=== PATIENT | female | born 1970 | race Caucasian/White ===

== ENCOUNTER 2016-12-06 09:43 | Emergency (ER) | payer OTHER, MEDICARE ==
[~2016-12-06] VITALS: Ht 167.6 cm; Wt 74.8 kg
[~2016-12-06 09:43] MED LIST: FLUOXETINE HYDR20 MG PO; MEDROL DOSEPAK1 PAC PO; OXCARBAZEPINE300 MG; OXYCODONE HCL15 MG PO; OXYCONTIN20 MG PO; OXYCONTIN30 MG PO; PREDNISONE 20MG20 MG PO; REGLAN10 MG PO; RIZATRIPTAN BEN10 M1 PO; TIZANIDINE4 MG PO; VENLAFAXINE H37.5 M1 PO; VENLAFAXINE HYD75 M1 PO; VYVANSE30 MG PO; VYVANSE50 MG PO; ZOFRAN4 M1 PO
[2016-12-06 09:51] VITALS: BP 142/84
--- NOTE | 2016-12-06 10:28 | ED HEADACHE COMPLAINT ---
History of Present Illness General Chief Complaint: General Adult Stated Complaint: HEAD,FACE,NECK PAIN Source: patient, family, old records Exam Limitations: no limitations Vital Signs & Intake/Output Vital Signs & Intake/Output Vital Signs Date Time Temp Pulse Resp B/P B/P Pulse O2 O2 Flow FiO2 Mean Ox Delivery Rate 12/06 0951 98.1 71 18 142/84 100 Room Air Allergies Coded Allergies: NO KNOWN ALLERGIES (12/09/10) Reconcile Medications FLUOXETINE HCL (Fluoxetine Hydrochloride) 20 MG CAP 2 CAP PO DAILY MENTAL HEALTH (Reported) Lisdexamfetamine Dimesylate (Vyvanse) 50 MG CAP 1 CAP PO DAILY ADHD (Reported ) Methylprednisolone. (Medrol) 1 PAC PAC 1 PAC PO TAPER facial pain, migraine? METOCLOPRAMIDE HCL (Reglan) 10 MG TAB 1 TAB PO Q8 PRN nausea/headache Ondansetron (Zofran Odt) 4 MG ODT 1 TAB PO Q6HR PRN NAUSEA Oxcarbazepine (Unknown Strength) TAB (Unknown Dose) UNKNOWN (Reported) Oxycodone Cr (OxyContin) 20 MG TAB 1 TAB PO TID PAIN (Reported) OXYCODONE HCL (Oxycodone HCl) 15 MG TAB 1 TAB PO 5 TIMES/DAY PAIN (Reported) Prednisone 20 MG TAB 2 TAB PO DAILY HEADACHE Rizatriptan Benzoate (Rizatriptan) 10 MG ODT 1 TAB PO AD PRN MIGRAINES ( Reported) TIZANIDINE HCL (Tizanidine) 4 MG TAB 1 TAB PO TID PRN MUSCLE SPASMS (Reported ) VENLAFAXINE HCL (Venlafaxine HCl ER) 37.5 MG CER 2 CAP PO DAILY MENTAL HEALTH (Reported) Triage Note: PT TO ED FOR EXACERBATION OF "CHRONIC TRIGEMINAL NEUROLGIA PAIN" REPORTING SHE IS CURRENTLY IN PAIN MANAGEMENT FOR SAME "BUT MY PERCOCET ISNT WORKING" TAKES 10 MG OF PERCOCET "EVERY 4-6 HOURS". Triage Nurses Notes Reviewed? yes Onset: Abrupt Duration: day(s): (3), constant Timing: recent history Quality/Severity: moderate, severe, achy Severity Numbers: 9 Head Injury Location: l sided, nonradiating No Modifying Factors: none Associated Symptoms: denies : No Patient currently breastfeeds: No HPI: 46-year-old female with history of trigeminal neuralgia presents to ER for evaluation complaining of a 3 day history of an exacerbation of her trigeminal neuralgia pain. The patient states she's been taking Percocet without improvement. No recent fall or head trauma. She's had history of surgeries in the past most recently being 15 years ago. No fever no chills. She denies numbness or tingling to her arms or, nausea no vomiting. She is not seen by a neurologist. She is followed by Dr. ventura in pain management. Her last dose of pain medication was earlier this morning without improvement or no change in her mental status per family (SYED HAYWARD) Past History Travel History Traveled to [place] past 21 day No Medical History Any Pertinent Medical History? see below for history Neurological: TRIGEMINAL NEURALGIA BRAIN STEM SURGERIES EENT: NONE Cardiovascular: hypertension Respiratory: NONE Gastrointestinal: NONE Hepatic: NONE Renal: NONE Musculoskeletal: NONE Psychiatric: anxiety Endocrine: NONE Blood Disorders: NONE Cancer(s): NONE MANAGER CREDIT COLLECTIONS/Reproductive: NONE Surgical History Surgical History: Multiple surgeries to mastoid region for trigeminal neuralgia Psychosocial History Who do you live with Other (see notes) What is your primary language German Tobacco Use: Current Daily Use Daily Tobacco Use Amount/Type: => 5 Cigarettes daily ETOH Use: denies use Illicit Drug Use: denies illicit drug use Family History Hx Contributory? No (SYED HAYWARD) Review of Systems Review of Systems Constitutional: Reports: see HPI. All Other Systems: Reviewed and Negative Comments Review of systems: See HPI, All other systems negative. Constitutional, no chills no fever, no malaise HEENT: No visual changes no sore throat no congestion, Cardio: No chest pain Skin: no rashes, no change in skin Respiratory: No dyspnea no cough no sputum GI: No nausea no vomiting, no diarrhea, : No dysuria Muscle skeletal: No joint pain, no joint swelling, no back pain, no neck pain, Neurologic: No numbness no confusion, headache Psych: No stress Heme/endocrine: No bruising Immunology: No lymphadenopathy (SYED HAYWARD) Physical Exam Physical Exam General Appearance: well developed/nourished, no apparent distress, alert, cachetic Cranial Nerves: normal hearing, normal speech, PERRL Comments: Well-developed well-nourished person in no acute distress HEENT: Normal EENT exam; PERRL, EOMI, no nystagmus. HEAD is atraumatic. moist mucous membranes. Neck: Supple normal range of motion without pain or tenderness Back: Nontender, Full range of motion Cardiovascular: Regular rate and rhythms no murmurs rubs or gallops Respiratory: Chest nontender.There were no bony deformities, no asymmetry. No respiratory distress. Patient speaking in full complete sentences. Breath sounds clear to auscultation bilaterally: NO W/R/R Extremity: No edema, full range of motion of extremities, normal and equal pulses bilaterally, 5 out of 5 strength noted to bilateral upper and lower extremities Neuro: Alert oriented x3, motor sensory normal, cranial nerves II through XII grossly intact. There were no obvious focal neurologic abnormalities. Negative Brudzinski's negative Kernig's Skin: No appreciable rash on exposed skin, skin is warm and dry. Psych: Mood and affect is normal, memory and judgment is normal. Core Measures Severe Sepsis Present: No Septic Shock Present: No (SYED HAYWARD) Progress Differential Diagnosis: encephalitis, IC mass/tumor, intracranial Hem., meningitis, musculoskeletal pain, sinusitis, temporal arteritis, trigeminal neuralgia, MASTOIDITIS Plan of Care: Current Medications Sig/Cy Start time Last Medication Dose Stop Time Status Admin Hydromorphone HCl 1 MG ONCE ONE 12/06 1044 UNVr (Dilaudid) 12/06 1046 I discussed with the patient at length all of their results. I had an extensive conversation regarding need for close follow up with their primary care physician/neurology, pain management this week as well as return precautions. I answered all of their questions, they feel comfortable with the plan and follow- up care. (SYED HAYWARD) Departure Departure Time of Disposition: 1037 Disposition: HOME OR SELF CARE Condition: Stable Clinical Impression Primary Impression: Trigeminal neuralgia Referrals: TIMUR ORONA,SHABANA SORIANO MD,FLAKITO (PCP/Family) CELINE ORONA,SHANELL Cheney Additional Instructions: follow up with your pain management dr ventura as well as neurologist dr tejada this week. continue taking your medication as prescribed. return to the ER with any concerns Departure Forms: Customer Survey General Discharge Information (SYED HAYWARD) PA/DRYING TUNNEL OPERATOR Co-Sign Statement Statement: ED Attending supervision documentation- I saw and evaluated the patient. I have also reviewed all the pertinent lab results and diagnostic results. I agree with the findings and the plan of care as documented in the PA's/DRYING TUNNEL OPERATOR's documentation. x I have reviewed the ED Record and agree with the PA's/DRYING TUNNEL OPERATOR's documentation. [] Additions or exceptions (if any) to the PAs/DRYING TUNNEL OPERATOR's note and plan are summarized below: [] (LUCY ORONA,JERSON)
== END 2016-12-06 10:48 ==
LOC: ERH 09:43
DX: G50.0 Trigeminal neuralgia (principal)
CPT/HCPCS: 96372

== ENCOUNTER 2017-12-19 14:38 | Emergency (ER) | payer OTHER, MEDICARE ==
[~2017-12-19] VITALS: Ht 170.2 cm; Wt 74.8 kg
[~2017-12-19 14:38] MED LIST changes: +ZITHROMAX250 M2 PO
[2017-12-19 15:11] LABS: ABSOLUTE BASOPHIL COUNT 0.1 /CUMM (0.0-0.2); ABSOLUTE EOSINOPHIL COUNT 0.3 /CUMM (0.0-0.7); ABSOLUTE GRANULOCYTE CT 2.8 /CUMM (1.4-6.5); ABSOLUTE LYMPH COUNT 2.5 /CUMM (1.2-3.4); ABSOLUTE MONOCYTE COUNT 0.5 /CUMM (0.10-0.60); BASOPHIL % 0.9 % (0.0-2.0); EOSINOPHIL % 4.4 % (0-5); HEMATOCRIT 34.5 % (37-47); MEAN CORPUSCULAR HGB 33.7 PG (27.0-31.0); MEAN CORPUSCULAR HGB CONC 33.7 G/DL (33.0-37.0); MEAN CORPUSCULAR VOLUME 99.8 FL (81.0-99.0); MEAN PLATELET VOLUME 6.3 FL (7.4-10.4); PLATELET COUNT 307 /CUMM (130-400); RBC DISTRIBUTION WIDTH 14.1 % (11.5-14.5); RED BLOOD CELL CT 3.46 /CUMM (4.20-5.40); WHITE BLOOD CELL COUNT 6.2 /CUMM (4.8-10.8)
--- NOTE | 2017-12-19 15:27 | RADIOLOGY REPORT ---
EXAMINATION: XR CHEST CLINICAL INFORMATION: Chest pain. COMPARISON: Chest x-ray 05/31/2017. TECHNIQUE: 2 views of the chest were obtained. FINDINGS: No acute abnormality. No pulmonary vascular congestion. No infiltrate or pleural effusion. There is no pneumothorax. The cardiac and mediastinal contours are normal. The heart size is normal. There is a mild dextroscoliosis of the thoracolumbar junction. IMPRESSION: No acute abnormality.
[2017-12-19 16:31] VITALS: BP 128/57
--- NOTE | 2017-12-19 16:59 | ED GENERAL ADULT ---
History of Present Illness General Chief Complaint: Chest Pain Stated Complaint: PT IS HAVING CP AND SOB AND BP 180/108 Source: patient Exam Limitations: no limitations Vital Signs & Intake/Output Vital Signs & Intake/Output Vital Signs Date Time Temp Pulse Resp B/P B/P Pulse O2 O2 Flow FiO2 Mean Ox Delivery Rate 12/19 1631 98.6 61 18 128/57 97 Room Air 12/19 1456 95.8 65 15 124/73 98 Room Air Room Air Allergies Coded Allergies: No Known Allergies (12/19/17) Reconcile Medications Azithromycin (Zithromax) 250 MG TABLET 1 DP PO AD bronchitis 2 the first day followed by 1 for days 2-5 FLUOXETINE HCL (Fluoxetine Hydrochloride) 20 MG CAP 2 CAP PO DAILY MENTAL HEALTH (Reported) Lisdexamfetamine Dimesylate (Vyvanse) 50 MG CAP 1 CAP PO DAILY ADHD (Reported ) Methylprednisolone. (Medrol) 1 PAC PAC 1 PAC PO TAPER facial pain, migraine? METOCLOPRAMIDE HCL (Reglan) 10 MG TAB 1 TAB PO Q8 PRN nausea/headache Ondansetron (Zofran Odt) 4 MG ODT 1 TAB PO Q6HR PRN NAUSEA Oxcarbazepine (Unknown Strength) TAB (Unknown Dose) UNKNOWN (Reported) Oxycodone Cr (OxyContin) 20 MG TAB 1 TAB PO TID PAIN (Reported) OXYCODONE HCL (Oxycodone HCl) 15 MG TAB 1 TAB PO 5 TIMES/DAY PAIN (Reported) Prednisone 20 MG TAB 2 TAB PO DAILY HEADACHE Rizatriptan Benzoate (Rizatriptan) 10 MG ODT 1 TAB PO AD PRN MIGRAINES ( Reported) TIZANIDINE HCL (Tizanidine) 4 MG TAB 1 TAB PO TID PRN MUSCLE SPASMS (Reported ) VENLAFAXINE HCL (Venlafaxine HCl ER) 37.5 MG CER 2 CAP PO DAILY MENTAL HEALTH (Reported) Triage Note: PT TO ED FOR C/C OF CHEST TIGHTNESS, "FEELS LIKE MY BRA IS REALLY TIGHT." WAS ADVISED TO COME TO ED BY HER FATHER'S VISITING NURSE FOR SUBJECTIVE BP OF 180/108. PT REPORTS THIS HAS HAPPENED BEFORE AND THEN WHEN SHE GOES TO THE DOCTOR HER BP IS FINE. BP WNL HERE. REPORTS NO ACTIVE CHEST PAIN AT THIS TIME. SOME SOB, NO ACUTE DISTRESS NOTED. Triage Nurses Notes Reviewed? yes HPI: Patient is a 47-year-old female with past medical history as outlined below, but no prior cardiac history, who presents today with chest discomfort. She reports that the discomfort was localized to her anterior chest, and that she has had dyspnea and palpitations for "years," but denies any new acute change in those symptoms. She presented to the emergency department "to be checked out." Upon my initial encounter the patient is exceedingly well-appearing, and in no acute distress. Past History Travel History Traveled to [place] past 21 day No Medical History Any Pertinent Medical History? 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 No Review of Systems Review of Systems Constitutional: Reports: see HPI. EENTM: Reports: no symptoms. Respiratory: Reports: short of breath. Cardiovascular: Reports: chest pain, palpitations. GI: Reports: no symptoms. Genitourinary: Reports: no symptoms. Musculoskeletal: Reports: no symptoms. Skin: Reports: no symptoms. Neurological/Psychological: Reports: no symptoms. Hematologic/Endocrine: Reports: no symptoms. Immunologic/Allergic: Reports: no symptoms. All Other Systems: Reviewed and Negative Physical Exam Physical Exam General Appearance: well developed/nourished, no apparent distress, alert, comfortable Comments: HEENT: Inspection of the head reveals a normocephalic cranium with no signs of trauma. Ophtho: Extraocular muscles are intact and pupils are equal and reactive to light bilaterally with no afferent pupillary defect. The sclera are noninjected , and there is no obvious discharge. Neck: The trachea is midline, there is no obvious asymmetry or mass over the thyroid, and there is no midline cervical spine tenderness Respiratory: The lungs are clear and equal to auscultation bilaterally without wheezes, rales, or rhonchi. The patient exhibits no signs of labored breathing. Cardiac: Regular rhythm and non-tachycardic without appreciable murmurs on auscultation. No obvious JVD. GI: Examination of the abdomen reveals no significant focal tenderness in any of the four quadrants. There is negative Paul's sign, negative McBurney's point tenderness, negative Carleton sign, negative Shrestha-Nieto sign, and no signs of peritonitis whatsoever on percussion or deep palpation. The skin is intact with no sign of trauma or infection. : Deferred Neuro: The patient is oriented to person, place, time, and situation, with no obvious focal motor deficits. There were no sensory deficits, and the patient exhibit purposeful movement of all 4 extremities. Cranial nerves II through XII are intact, and gait is normal. Behavioral: Calm and cooperative Dermatologic: Dermatologic examination reveals no diffuse rashes or exanthems, no petechiae, no ecchymoses, and no other signs of erythema or infection. Core Measures ACS in differential dx? Yes CVA/TIA Diagnosis: No Sepsis Present: No Sepsis Focused Exam Completed? No Progress Differential Diagnoses I considered the following diagnoses in my evaluation of the patient: Acute coronary syndrome, stable angina, unstable angina, pleurisy, pneumonia, multiple other possibilities Plan of Care: Orders Procedure Date/time Status URINE DRUG SCREEN FOR ER ONLY 12/19 1454 Complete TROPONIN LEVEL 12/19 1454 Complete HUMAN BETA HCG SCREEN 12/19 1454 Complete COMPREHENSIVE METABOLIC PANEL 12/19 1454 Complete CBC WITHOUT DIFFERENTIAL 12/19 1454 Complete EKG 12/19 1440 Active Laboratory Tests 12/19/17 1650: Urine Opiates Screen 266, Methadone Screen < 40, Barbiturate Screen < 60, Ur Phencyclidine Scrn < 6.00, Amphetamines Screen 503, U Benzodiazepines Scrn < 85, Urine Cocaine Screen < 50, Urine Cannabis Screen < 5.00 12/19/17 1502: Anion Gap 11, Estimated GFR > 60, BUN/Creatinine Ratio 16.3, Glucose 83, Calcium 9.1, Total Bilirubin 0.2, AST 21, ALT 25, Alkaline Phosphatase 77, Troponin I < 0.01, Total Protein 6.9, Albumin 4.0, Globulin 2.9, Albumin/Globulin Ratio 1.4, Total Beta HCG NEGATIVE, CBC w Diff NO MAN DIFF REQ, RBC 3.46 L, MCV 99.8 H, MCH 33.7 H, MCHC 33.7, RDW 14.1, MPV 6.3 L, Gran % 46.0, Lymphocytes % 40.4, Monocytes % 8.3, Eosinophils % 4.4, Basophils % 0.9, Absolute Granulocytes 2.8, Absolute Lymphocytes 2.5, Absolute Monocytes 0.5, Absolute Eosinophils 0.3, Absolute Basophils 0.1 CXR Impression: no acute abnormality, no infiltrates, normal size heart, normal mediastinum Initial ED EKG: ECG performed at 1446 hrs. and read at 1450 hrs. by me shows normal sinus rhythm with a rate of 66, normal axis, normal intervals, normal ST segments and T waves, no active ischemia, no STEMI. As compared to prior study from 03/06/2017, no interval ischemic changes are present. Comments: MDM: Patient presented today for atypical chest discomfort. She reports that she has had palpitations and dyspnea, but that these have been present for many years and or unchanged acutely. Her arrival ECG was nonischemic, and her troponin was negative. Chest x-ray clear. I discussed with the patient the possibility of hospitalization for cardiac observation and troponin trending, but she expressed interest in being discharged home and following up with her primary care physician and cardiology in the outpatient setting. I also offered a delta troponin at 3 hours to decrease her risk profile from 1-3% to below 1%, but she declined, stating that she felt comfortable with the workup as performed thus far. I referred her to cardiology, and her medical screening examination was otherwise negative. She was stable at time of discharge, with full understanding of my copious return precautions. Departure Departure Time of Disposition: 1656 Disposition: HOME OR SELF CARE Condition: Stable Clinical Impression Primary Impression: Chest pain Qualifiers: Chest pain type: other chest pain Qualified Code: R07.89 - Other chest pain Referrals: Loly Garcia MD (PCP/Family) Additional Instructions: Your workup in the ER was reassuring today. Please follow-up with your primary physician and with our cardiology team at the attached number for reassessment. Departure Forms: Customer Survey General Discharge Information Critical Care Note Critical Care Note Critical Care Time: non-applicable
== END 2017-12-19 17:16 ==
LOC: ERH 14:38
PROVIDERS: Physician Assistant
DX: R07.89 Other chest pain (principal)
CPT/HCPCS: 71046; 80307; 93005; 93010

== ENCOUNTER 2018-03-27 22:13 | Observation (INO) | payer OTHER, MEDICARE ==
[~2018-03-27] VITALS: Ht 170.2 cm; Wt 83.2 kg
[~2018-03-27 22:13] MED LIST changes: +FLUOXETINE HCL20 M2 PO; -FLUOXETINE HYDR20 MG PO; +MAXALT10 M1 PO; +OXCARBAZEPINE150 M1 PO; -OXCARBAZEPINE300 MG; +OXYCODONE HCL15 M1 PO; +OXYCONTIN20 M1 PO; -OXYCONTIN20 MG PO; -RIZATRIPTAN BEN10 M1 PO; +TIZANIDINE HCL4 M1 PO; -TIZANIDINE4 MG PO; -VENLAFAXINE H37.5 M1 PO; +VENLAFAXINE H37.5 M4 PO; +VYVANSE50 M1 PO; -VYVANSE50 MG PO
--- NOTE | 2018-03-27 23:00 | ED PSYCHIATRIC COMPLAINT ---
History of Present Illness General Chief Complaint: ETOH/Drug Related Complaint Stated Complaint: BIBA ?OD ON MUSCLE RELAXERS Source: family Exam Limitations: intoxication Vital Signs & Intake/Output Vital Signs & Intake/Output Vital Signs Date Time Temp Pulse Resp B/P B/P Pulse O2 O2 Flow FiO2 Mean Ox Delivery Rate 03/28 0018 54 14 83/51 99 Room Air 03/27 2333 53 16 84/48 94 Room Air Room Air 03/27 2319 50 20 85/52 100 Nasal 2.0L Cannula 03/27 2316 100 Room Air 03/27 2310 51 20 79/49 100 Nasal 2.0L Cannula 03/27 2248 97.2 53 18 83/48 100 Room Air ED Intake and Output 03/28 0000 03/27 1200 Intake Total 1000 Output Total Balance 1000 Intake, IV 1000 Allergies Coded Allergies: No Known Allergies (12/19/17) Reconcile Medications Azithromycin (Zithromax) 250 MG TABLET 1 DP PO AD bronchitis 2 the first day followed by 1 for days 2-5 FLUOXETINE HCL (Fluoxetine Hydrochloride) 20 MG CAP 2 CAP PO DAILY MENTAL HEALTH (Reported) Lisdexamfetamine Dimesylate (Vyvanse) 50 MG CAP 1 CAP PO DAILY ADHD (Reported ) Methylprednisolone. (Medrol) 1 PAC PAC 1 PAC PO TAPER facial pain, migraine? METOCLOPRAMIDE HCL (Reglan) 10 MG TAB 1 TAB PO Q8 PRN nausea/headache Ondansetron (Zofran Odt) 4 MG ODT 1 TAB PO Q6HR PRN NAUSEA Oxcarbazepine (Unknown Strength) TAB (Unknown Dose) UNKNOWN (Reported) Oxycodone Cr (OxyContin) 20 MG TAB 1 TAB PO TID PAIN (Reported) OXYCODONE HCL (Oxycodone HCl) 15 MG TAB 1 TAB PO 5 TIMES/DAY PAIN (Reported) Prednisone 20 MG TAB 2 TAB PO DAILY HEADACHE Rizatriptan Benzoate (Rizatriptan) 10 MG ODT 1 TAB PO AD PRN MIGRAINES ( Reported) TIZANIDINE HCL (Tizanidine) 4 MG TAB 1 TAB PO TID PRN MUSCLE SPASMS (Reported ) VENLAFAXINE HCL (Venlafaxine HCl ER) 37.5 MG CER 2 CAP PO DAILY MENTAL HEALTH (Reported) Triage Note: TRIAGE: BIBA FROM HOME FOR ?OD ON MUSCLE RELAXERS PER BOYFRIEND TO EMS. ON EMS ARRIVAL, PATIENT WAS COMBATIVE AND SCREAMED "I DIDN'T TAKE ANYTHING AND I HAD ONE DRINK!" PER EMS NOTED ONE EMPTY BEER BOTTLE. ON PROPOSAL WRITER ARRIVAL, PATIENT BECAME UNRESPONSIVE, PREHOSP IV EST #18 LEFT AC W/ APPROX 500ML NS INFUSED BOLUS, GIVEN TOTAL OF 2MG NARCAN AND 0.5MG ATROPINE IN FIELD W/ VERY SLIGHT IMPROVEMENT. PATIENT VERY SLIGHT RESPONSE TO STERNAL RUB. SNORING, AIRWAY PATENT, O2:100%RA. VERY PALE AND CLAMMY. PER EMS PATIENT SHEETS WERE BLOOD TINGED ON SCENE. Triage Nurses Notes Reviewed? yes Onset: Abrupt Duration: day(s): Timing: recent history Severity: moderate, severe HPI: 47-year-old female comes into the emergency room for further evaluation of after overdose. The boyfriend reports that he called her and she was not making sense on the phone. She was reportedly having a lot of pain and reports that she was given a take similar medication. He went to evaluate her and found her to be very combative. Ambulance was called and by the time the paramedics got there she was obtunded and not responding. She got 2 mg of Narcan in the field. She was still not responding. History is very limited. They are unsure of any other medication that she takes. She may have taken some muscle relaxants at home. (Steve Simpson) Past History Travel History Traveled to [place] past 21 day No Medical History Any Pertinent Medical History? see below for history Neurological: TRIGEMINAL NEURALGIA BRAIN STEM SURGERIES EENT: NONE Cardiovascular: hypertension, AMNIOTIC ARTERY AROUND TRIGEMINAL NERVE Respiratory: NONE Gastrointestinal: NONE Hepatic: NONE Renal: NONE Musculoskeletal: NONE Psychiatric: anxiety Endocrine: NONE Blood Disorders: NONE Cancer(s): NONE BURSAR/Reproductive: NONE Surgical History Surgical History: Multiple surgeries to mastoid region for trigeminal neuralgia Psychosocial History Who do you live with Other (see notes) What is your primary language Swedish Tobacco Use: UN ETOH Use: 6 Illicit Drug Use: UTD Family History Hx Contributory? No (Steve Simpson) Review of Systems Review of Systems Constitutional: Reports: no symptoms. EENTM: Reports: no symptoms. Respiratory: Reports: no symptoms. Cardiovascular: Reports: no symptoms. GI: Reports: no symptoms. Genitourinary: Reports: no symptoms. Musculoskeletal: Reports: no symptoms. Skin: Reports: no symptoms. Neurological/Psychological: Reports: see HPI. Hematologic/Endocrine: Reports: no symptoms. Immunologic/Allergic: Reports: no symptoms. All Other Systems: Reviewed and Negative (Steve Simpson) Physical Exam Physical Exam General Appearance: obtunded, does not respond to verbal or painful stimuli, does not respond to sternal rub Head: atraumatic Eyes: Bilateral: normal appearance, EOMI, other (pupils pinpoint). Ears, Nose, Throat: normal pharynx, normal ENT inspection, hearing grossly normal Neck: normal inspection Respiratory: normal breath sounds, no respiratory distress Cardiovascular: bradycardia Extremities: normal range of motion Neurological/Psychiatric: no response to pain Skin: intact, normal color, warm/dry SAD PERSONS Done? unobtained due to conditi (Steve Simpson) Progress Differential Diagnosis: dementia, drug intoxication, drug overdose, drug withdrawal, electrolyte abnormality, encephalitis Plan of Care: Orders Procedure Date/time Status Patient Data 03/[address] in observation 03/28 0006 Active Add-on Test (ER Only) 03/27 2318 Active Add-on Test (ER Only) 03/27 231 Active URINE 03/27 225 Complete ACETOMINOPHEN 03/27 225 Complete SALICYLATE 03/27 225 Complete URINE DRUG SCREEN FOR ER ONLY 03/27 224 Complete URINALYSIS 03/27 224 Complete ETHANOL 03/27 224 Complete COMPREHENSIVE METABOLIC PANEL 03/27 2247 Complete CBC WITHOUT DIFFERENTIAL 03/27 2247 Complete EKG 03/27 2222 Active Laboratory Tests 03/27/18 2255: Urine Opiates Screen 297, Methadone Screen 42, Barbiturate Screen 635 H, Ur Phencyclidine Scrn < 6.00, Amphetamines Screen 1152 H, U Benzodiazepines Scrn < 85, Urine Cocaine Screen < 50, Urine Cannabis Screen < 5.00, Urine Test NEGATIVE 03/27/182254: Anion Gap 7, Estimated GFR > 60, BUN/Creatinine Ratio 20.0, Glucose 130 H, Calcium 8.1 L, Total Bilirubin 0.2, AST 16, ALT 29, Alkaline Phosphatase 62, Total Protein 5.8 L, Albumin 3.4 L, Globulin 2.4, Albumin/Globulin Ratio 1.4, CBC w Diff NO MAN DIFF REQ, RBC 2.65 L, MCV 101.2 H, MCH 32.9 H, MCHC 32.5 L , RDW 14.8 H, MPV 7.1 L, Gran % 54.5, Lymphocytes % 35.8, Monocytes % 5.9, Eosinophils % 3.5, Basophils % 0.3, Absolute Granulocytes 4.4, Absolute Lymphocytes 2.9, Absolute Monocytes 0.5, Absolute Eosinophils 0.3, Absolute Basophils 0, Salicylates < 1.0, Acetaminophen < 10.0 L, Serum Alcohol 154.0, Urine Color YEL, Urine Clarity CLEAR, Urine pH 6.5, Ur Specific Hamel 1.015, Urine Protein NEG, Urine Ketones NEG, Urine Nitrite NEG, Urine Bilirubin NEG, Urine Urobilinogen 0.2, Ur Leukocyte Esterase NEG, Ur Microscopic EXAM NOT REQUIRED, Urine Hemoglobin NEG, Urine Glucose NEG Initial ED EKG: normal sinus rhythm, rate (51) (Steve Simpson) Departure Departure Disposition: STILL A PATIENT Condition: Stable Clinical Impression Primary Impression: Polysubstance overdose Referrals: Loly Garcia MD (PCP/Family) Departure Forms: Customer Survey General Discharge Information Observation Note Spoke With: Johny ORONA,Claudia Physician Advisor Notified: ZOILA WONG DO Place Patient In: Non-ED OBS Care Area Rationale for Observation: My rational for observation is as follows . IV fluids. Patient may require Narcan drip. dr redman spoke with hospitist. Repeat labs. Monitoring airway and respirations. Medically not safe for discharge. Patient required 2 mg of Narcan IV here in the emergency room. Patient responded to IV Narcan and is more alert but she will require close observation. (Steve Simpson) PA/HEATING EQUIPMENT INSTALLER Co-Sign Statement Statement: ED Attending supervision documentation- x I saw and evaluated the patient. I have also reviewed all the pertinent lab results and diagnostic results. I agree with the findings and the plan of care as documented in the PA's/HEATING EQUIPMENT INSTALLER's documentation. Obtunded with chronic pain on oxycodone, antidepressants [] I have reviewed the ED Record and agree with the PA's/HEATING EQUIPMENT INSTALLER's documentation. [] Additions or exceptions (if any) to the PAs/HEATING EQUIPMENT INSTALLER's note and plan are summarized below: [] (Chidi Redman MD) Critical Care Note Critical Care Note Critical Care Time: 30-74 min (45) (Ace CAMPOS,Steve)
[2018-03-27 23:15] LABS: ABSOLUTE BASOPHIL COUNT 0 /CUMM (0.0-0.2); ABSOLUTE EOSINOPHIL COUNT 0.3 /CUMM (0.0-0.7); ABSOLUTE GRANULOCYTE CT 4.4 /CUMM (1.4-6.5); ABSOLUTE LYMPH COUNT 2.9 /CUMM (1.2-3.4); ABSOLUTE MONOCYTE COUNT 0.5 /CUMM (0.10-0.60); BASOPHIL % 0.3 % (0.0-2.0); EOSINOPHIL % 3.5 % (0-5); GRANULOCYTE % 54.5 % (42.2-75.2); HEMATOCRIT 26.8 % (37-47); MEAN CORPUSCULAR HGB 32.9 PG (27.0-31.0); MEAN CORPUSCULAR HGB CONC 32.5 G/DL (33.0-37.0); MEAN CORPUSCULAR VOLUME 101.2 FL (81.0-99.0); MEAN PLATELET VOLUME 7.1 FL (7.4-10.4); PLATELET COUNT 267 /CUMM (130-400); RBC DISTRIBUTION WIDTH 14.8 % (11.5-14.5); RED BLOOD CELL CT 2.65 /CUMM (4.20-5.40); WHITE BLOOD CELL COUNT 8.1 /CUMM (4.8-10.8)
[2018-03-28] VITALS (9 sets, daily range): BP systolic 99–138; BP diastolic 54–84
--- NOTE | 2018-03-28 00:37 | History & Physical ---
Pito Michaels 03/28/18 0036: General Information and HPI MD Statement: I have seen and personally examined ZHENG PEOPLES and documented this H&P. The patient is a 47 year old F who presented with a patient stated chief complaint of [overdosing on muscle relaxant]. Source of Information: patient, family History of Present Illness: The patient is a 47-year-old female past medical history significant for trigeminal neuralgia, endometriosis, active smoker who was brought in by ambulance from home due to unresponsiveness after overdosing on muscle relaxants , probably tizanidine. The patient was accompanied by her fianc who is a clinical social media executive, and his name is Branden Lai, and also her father. The history was mostly taken from her fianc at first. According to him they were texting during the day, and the patient had severe pain, and then the texts got funny, and he found out that something is going wrong. He called 911, and went to her house. When he got there the ambulance was already there and she was unresponsive, according to him she was unresponsive probably for 30-45 minutes. Then she was taken to the hospital. According to the previous documentations, the patient was combative when the EMS arrived at home, they had found one empty bottle of beer, and the patient was unresponsive. They gave 0.5 mg of naloxone with various slight improvement. She had very small response to sternal rub, was pale, clammy, and snoring. Patient's sheets were blood-tinged at the scene. Later during the interview the patient became responsive, alert, and oriented. She mentioned that she took tizanidine because she had headache that she believed was from the trigeminal neuralgia. She denies any narcotic use other than Percocet 4 times a day which was prescribed for her endometriosis induced pain, and also headaches. She denies alcohol use, or any other recreational drug use. She does not state any suicidal ideation. She does not recall that how much and exactly what medications she took but she knows that she took too much. Allergy: No allergies to known medications or foods Past medical history: Endometriosis, trigeminal neuralgia, borderline hypertension Past surgical history: Knee surgery which was done years ago, D&C for scar tissue Social history: She has been smoking cigarettes 1 pack per day since she was 17, she uses occasional alcohol, but no recreational drugs Allergies/Medications Allergies: Coded Allergies: No Known Allergies (12/19/17) Compliance With Home Meds: UNKNOWN Past History Travel History Traveled to [place] past 21 day No Medical History Neurological: TRIGEMINAL NEURALGIA BRAIN STEM SURGERIES EENT: NONE Cardiovascular: hypertension, AMNIOTIC ARTERY AROUND TRIGEMINAL NERVE Respiratory: NONE Gastrointestinal: NONE Hepatic: NONE Renal: NONE Musculoskeletal: NONE Psychiatric: anxiety Endocrine: NONE Blood Disorders: NONE Cancer(s): NONE PLAYER SERVICES REPRESENTATIVE/Reproductive: NONE Surgical History Surgical History: Multiple surgeries to mastoid region for trigeminal neuralgia Past Family/Social History Psychosocial History ETOH Use: 6 Illicit Drug Use: UTD Review of Systems Review of Systems Constitutional: Reports: see HPI. Exam & Diagnostic Data Last 24 Hrs of Vital Signs/I&O Vital Signs Date Time Temp Pulse Resp B/P B/P Pulse O2 O2 Flow FiO2 Mean Ox Delivery Rate 03/28 0451 97.9 58 18 110/54 96 Room Air 03/28 0435 97.9 70 21 110/54 03/28 0357 58 16 96/57 98 Room Air 03/28 0353 99 Room Air Room Air 03/28 0305 59 16 94/56 99 Room Air Room Air 03/28 0245 66 16 98/56 99 Room Air Room Air 03/28 0227 67 16 97/54 99 Room Air Room Air 03/28 0124 58 14 95/52 100 Room Air Room Air 03/28 0105 58 14 86/47 97 Room Air Room Air 03/28 0018 54 14 83/51 99 Room Air 03/27 2333 53 16 84/48 94 Room Air Room Air 03/27 2319 50 20 85/52 100 Nasal 2.0L Cannula 03/27 2316 100 Room Air 03/27 2310 51 20 79/49 100 Nasal 2.0L Cannula 03/27 2248 97.2 53 18 83/48 100 Room Air Intake & Output 03/28 0800 03/28 0000 03/27 1600 Intake Total 4435 1000 Output Total 1200 Balance 3235 1000 Intake, IV 4435 1000 Intake, Oral 0 Number 0 Bowel Movements Output, Urine 1200 Patient 183 lb Weight Physical Exam General Appearance Alert, Oriented X3, Cooperative, No Acute Distress, Drowsy at begining of the interview, improved Skin No Rashes, No Breakdown Skin Temp/Moisture Exam: Warm/Dry Sepsis Skin Exam (color): Normal for Ethnicity HEENT Atraumatic Cardiovascular Regular Rate, Normal S1, Normal S2 Lungs Clear to Auscultation, Normal Air Movement Abdomen Normal Bowel Sounds, Soft, No Tenderness Extremities No Edema, Normal Pulses Vascular Normal Pulses, Pulses Symmetrical Sepsis Peripheral Pulse Location: Dorsalis Pedis Sepsis Peripheral Pulse Exam: Normal Sepsis Cap Refill Exam: <2 Sec Assessment/Plan Assessment: The patient is a 47-year-old female who was brought in by ambulance due to unresponsiveness after overdosing with some medications. The patient responded to naloxone when it was administered in ED. Unconsciousness probably due to overdosing of multiple substances including tizanidine: U tox was positive for opiates, amphetamines, and alcohol. The patient has prescribed amphetamines and oxcarbazepine. Since the patient had responded to naloxone, and the EMS team had found blood tinged sheets at her home, it is possible that there is a component of IV opiate overdose. Plan: The patient is admitted to ICU for further observation, regular neuro checks will be done, precautions for aspiration will be followed Hypotension and bradycardia: Upon admission the patient was bradycardic with heart rate of 50s, and low blood pressure systolic blood pressure in the 80s. Plan: The patient will be observing ICU, normal saline will be started for her at the rate of 100 cc/h Substance use disorder and alcohol: Although the patient denied alcohol use, urine level of alcohol was 154, so we will watch the patient for withdrawal Plan: Regular monitoring of CIWA score, no Ativan will be given to the patient for now, multivitamins, IV fluids-banana bag daily. Trigeminal neuralgia: The patient has a history of trigeminal neuralgia Plan: Home medications for trigeminal neuralgia will be held now due to the overdose, Tylenol as needed for pain, Macrocytic anemia: The patient had hemoglobin of 11.7 with a couple of months ago which was 8.7 on admission this time. She has MCV of 101.2. There is probably a component of folic acid deficiency, and possible GI blood loss. The patient states that last menstrual period was when she was 41 years old. Plan: Check vitamin B12, folic acid, iron panel, stool for occult blood As Ranked By This Provider Problem List: 1. Polysubstance overdose 2. Trigeminal neuralgia 3. Endometriosis Core Measures/Misc (04/01) Acute Coronary Syndrome ACS Diagnosis: No Congestive Heart Failure Congestive Heart Failure Diagnosis No Cerebrovascular Accident CVA/TIA Diagnosis: No VTE (View Protocol) VTE Risk Factors Age>40 No Mechanical VTE Prophylaxis d/t N/A MechProphylax Ordered No VTE Pharm Prophylaxis d/t NA PharmProphylax ordered Sepsis (View protocol) Sepsis Present: No If YES complete Sepsis Event Note If YES complete Sepsis Event Note Lester ORONA,Mariana 03/28/18 0051: General Information and HPI Allergies/Medications Home Med list Albuterol Sulfate (Proair Hfa) 90 MCG HFA.AER.AD 2 INH ALLERGIES (Reported) Fluoxetine HCl 20 MG CAPSULE 2 CAP PO DAILY MENTAL HEALTH (Reported) Lisdexamfetamine Dimesylate (Vyvanse) 50 MG CAPSULE 1 CAP PO QAM ADHD ( Reported) Oxcarbazepine (Unknown Strength) TABLET (Unknown Dose) PO BID UNKNOWN ( Reported) Oxycodone HCl (Oxycontin) 20 MG TAB.ER.12H 1 TAB PO TID PAIN (Reported) Oxycodone HCl 15 MG TABLET 1 TAB PO 5 TIMES A DAY PAIN (Reported) Rizatriptan Benzoate (Maxalt) 10 MG TABLET 1 TAB PO DAILY PRN HEADACHE ( Reported) Tizanidine HCl 4 MG TABLET 1 TAB PO TID PRN MUSCLE SPASMS (Reported) Venlafaxine HCl (Venlafaxine HCl ER) 37.5 MG CAP.ER.24H 2 CAP PO DAILY MENTAL HEALTH (Reported) Exam & Diagnostic Data Last 24 Hrs of Vital Signs/I&O Vital Signs Date Time Temp Pulse Resp B/P B/P Pulse O2 O2 Flow FiO2 Mean Ox Delivery Rate 03/28 0018 54 14 83/51 99 Room Air 03/27 2333 53 16 84/48 94 Room Air Room Air 03/27 2319 50 20 85/52 100 Nasal 2.0L Cannula 03/27 2316 100 Room Air 03/27 2310 51 20 79/49 100 Nasal 2.0L Cannula 03/278 97.2 53 18 83/48 100 Room Air Intake & Output 03/28 0800 03/28 0000 03/27 1600 Intake Total 1000 Output Total Balance 1000 Intake, IV 1000 Last 24 Hrs of Labs/Barney: Laboratory Tests 03/27/185: Urine Opiates Screen 297, Methadone Screen 42, Barbiturate Screen 635 H, Ur Phencyclidine Scrn < 6.00, Amphetamines Screen 1152 H, U Benzodiazepines Scrn < 85, Urine Cocaine Screen < 50, Urine Cannabis Screen < 5.00, Urine Test NEGATIVE 03/27/18 2255: Anion Gap 7, Estimated GFR > 60, BUN/Creatinine Ratio 20.0, Glucose 130 H, Calcium 8.1 L, Total Bilirubin 0.2, AST 16, ALT 29, Alkaline Phosphatase 62, Total Protein 5.8 L, Albumin 3.4 L, Globulin 2.4, Albumin/Globulin Ratio 1.4, CBC w Diff NO MAN DIFF REQ, RBC 2.65 L, MCV 101.2 H, MCH 32.9 H, MCHC 32.5 L , RDW 14.8 H, MPV 7.1 L, Gran % 54.5, Lymphocytes % 35.8, Monocytes % 5.9, Eosinophils % 3.5, Basophils % 0.3, Absolute Granulocytes 4.4, Absolute Lymphocytes 2.9, Absolute Monocytes 0.5, Absolute Eosinophils 0.3, Absolute Basophils 0, Salicylates < 1.0, Acetaminophen < 10.0 L, Serum Alcohol 154.0, Urine Color YEL, Urine Clarity CLEAR, Urine pH 6.5, Ur Specific [place] 1.015, Urine Protein NEG, Urine Ketones NEG, Urine Nitrite NEG, Urine Bilirubin NEG, Urine Urobilinogen 0.2, Ur Leukocyte Esterase NEG, Ur Microscopic EXAM NOT REQUIRED, Urine Hemoglobin NEG, Urine Glucose NEG Core Measures/Misc (04/01) Acute Coronary Syndrome ACS Diagnosis: No Congestive Heart Failure Congestive Heart Failure Diagnosis No Cerebrovascular Accident CVA/TIA Diagnosis: No VTE (View Protocol) VTE Risk Factors Age>40 No Mechanical VTE Prophylaxis d/t N/A MechProphylax Ordered No VTE Pharm Prophylaxis d/t NA PharmProphylax ordered Sepsis (View protocol) Sepsis Present: No If YES complete Sepsis Event Note If YES complete Sepsis Event Note Resident Review Statement Resident Statement: examined this patient, discussed with seo intern, agreed with seo intern, discussed with family Other Findings: Patient is a 47-year-old female with past medical history of trizonal neuralgia not following any neurologist on multiple medication, endometriosis, chronic smoker, BIBA from home because of overdosing of muscle relaxer. EMS were called by anuj. According to him patient was continuous in his contact since morning. She was talking over the phone and was seen that she has really bad pain/trigeminal neuralgia. She told in the evening that she is going to take muscle relaxant. After what she was not in contact and not responding so she called 911. According to the documentation patient was combative when EMS arrived at home, she was screaming that she did not take anything and had only 1 drink. Per EMS there was one empty beer bottle. Patient became unresponsive she was given 500 cc of normal saline followed by 2 mg of Narcan and 0.5 mg of troponin with very slight improvement. She had very small response to sternal rub, was pale, clammy, snoring. Patient's sheets were blood tinged at the scene. Vital signs at the time of admission -blood pressure 83/40 she was given IV normal saline. She needed an extra dose of 0.8 mg of Narcan. She did not have any good response. Another, 1.2 mg of Narcan was given followed by complete alertness. She was continued on IV fluid. Vital signs -temperature 97.2, pulse 53, respiratory rate 18, blood pressure 83/ 48, SPO2 100% on room air. Blood workup showed-hemoglobin 8.7, MCV 101.2, platelet count 267, sodium 135, potassium 3.9, chloride 100, carbon DEXA 28, anion gap 7, BUN 12, creatinine 0.6 , glucose 130, calcium 8.1, total bilirubin 0.2, AST 16, ALT 29, alkaline phosphatase 62, albumin 3.4, U tox-positive for barbiturates, amphetamine, serum alcohol-154, acetaminophen level less than 10, urine analysis-normal, urine test negative. Assessment and plan - Unconsciousness possibly secondary to overuse of opiates - * Admitted to ICU for further observation * Neuro check every shift * Aspiration precautions * We will confirm the medication from the pharmacy Hypotension and bradycardia - * We will observe in the ICU * IV fluid-normal saline 100 cc/h Substance use disorder -alcohol use disorder * Regular monitoring of CIWA score * No Ativan for now * IV fluids-banana bag daily * Multivitamin Trigeminal neuralgia - * We will hold the medication for now * Tylenol as needed for pain * Please decide about the pain medication in the morning as needed Microcytic anemia possibly due to folic acid deficiency * We will follow vit b12/ folic acid/ iron panel * advised for stool for occult blood CODE STATUS-full code Diet-regular diet DVT prophylaxis-ALPS/heparin Johny ORONA,Claudia 03/28/18 0449: Core Measures/Misc (04/01) Sepsis (View protocol) If YES complete Sepsis Event Note If YES complete Sepsis Event Note Attending MD Review Statement Attending Statement Attending MD Statement: examined this patient, discuss w/resident/PA/LIQUOR BLENDER, agreed w/resident/PA/LIQUOR BLENDER, reviewed EMR data (avail), discussed with nursing, amended to note Attending Assessment/Plan: Patient seen and examined. History and physical is as documented by the resident above. Patient currently alert and oriented x3. Conversant appropriately. She is actually very jovial. 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 She admits to chronic Headaches and pain from her trigeminal neuralgia which is usually controlled with oxycodone. She also complains of intermittent abdominal cramping which does not respond to oxycodone. She reports taking extra doses of tinazidine to help control her abdominal cramping. She then became unresponsive later on. She has been offered hysterectomy in the past by her supervisor photoengraving but declines this. She also declines pharmaceutical therapy from her supervisor photoengraving due to fears of the side effects. She denies any nausea or vomiting. At the time of evaluation she stated pain had resolved. On examination she had no neurologic deficit. Abdomen is soft and nontender with normal bowel sounds. she was admitted for close neuro watch with plans to avoid sedatives and opiate analgesics. However as the morning progressed patient became more alert and restless. She started to complain of diffuse abdominal pain and insisting on having opioid analgesics. Reports that the abdominal pain is severe. Physical examination is not significantly changed from prior. Review of records shows last CT scan of the abdomen was done in 2014. At that time there was mention of possible bowel obstruction. She however has no records of being hospitalized at that time. Problems: 1. Unresponsiveness; medication induced. Resolved 2. Abdominal pain; patient attributes this to endometriosis 3. Chronic pain syndrome. Patient has history of trigeminal neuralgia. 4. Hypotension; likely medication induced. Improving with IV hydration. 5. Worsening anemia Plan: -Observe overnight. - Avoid oversedation. Analgesics for control of abdominal pain. May administer oxycodone for pain control with close neuro watch. -Hold her tinazidine for now. -Recommend CT abdomen pelvis with oral contrast to further evaluate her complaints of severe abdominal pain. -Bowel regimen to prevent opioid-induced constipation. -PLAYER SERVICES REPRESENTATIVE consultation if no gastrointestinal etiology of pain is identified on imaging. -Continue IV hydration. Encourage oral intake. Monitor for improvement of blood pressure. -Hemoglobin level noted to be much lower than levels earlier on this year. Check stool guaiac. Trend hemoglobin level. Check iron profile.
[2018-03-28] MEDS ORDERED: PROAIR HFA8.5 GM INH (05:19)
--- NOTE | 2018-03-28 07:20 | Cons- CRCU ---
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 EMS were called by anuj. According to him patient was continuous in his contact since morning. She was talking over the phone and was seen that she has really bad pain/trigeminal neuralgia. She told in the evening that she is going to take muscle relaxant. After what she was not in contact and not responding so she called 911. According to the documentation patient was combative when EMS arrived at home, she was screaming that she did not take anything and had only 1 drink. Per EMS there was one empty beer bottle. Patient became unresponsive she was given 500 cc of normal saline followed by 2 mg of Narcan and 0.5 mg of troponin with very slight improvement. She had very small response to sternal rub, was pale, clammy, snoring. Patient's sheets were blood tinged at the scene. Vital signs at the time of admission -blood pressure 83/40 she was given IV normal saline. She needed an extra dose of 0.8 mg of Narcan. She did not have any good response. Another, 1.2 mg of Narcan was given followed by complete alertness. She was continued on IV fluid. Vital signs -temperature 97.2, pulse 53, respiratory rate 18, blood pressure 83/ 48, SPO2 100% on room air. Blood workup showed-hemoglobin 8.7, MCV 101.2, platelet count 267, sodium 135, potassium 3.9, chloride 100, carbon DEXA 28, anion gap 7, BUN 12, creatinine 0.6 , glucose 130, calcium 8.1, total bilirubin 0.2, AST 16, ALT 29, alkaline phosphatase 62, albumin 3.4, U tox-positive for barbiturates, amphetamine, serum alcohol-154, acetaminophen level less than 10, urine analysis-normal, urine test negative. ON my examination, patient was somnolent, eventually alert after sternal rub. She states that last night she had significant pain, and decided to take 3 of her tinazidine pills, also drank 3 beers while cooking dinner. States that she continued to have abdominal pain and decided to take 3 more tinazidine pills. States that she gets these pills from her pain management physician for trigeminal neuralgia. States that she has not used these in the past although eventually admits that she has taken these before but does not remember her normal reaction or dose that she takes. Has never mixed her muscle relaxants with alcohol before, and denies drinking (although stated she drank 3 beers last night while cooking during the interview) daily. Unsure of when she last took Fioricet when asked if she had taken any barbiturates given positive UDS. States that she is happy with her life and is getting soon, denies SI/HI. States that she continues to have mild crampy abdominal pain, is diagnosed with endometriosis but says she has not been sexually active in quite some time and is unsure why she has pains now. Allergies/Medications Allergies: Coded Allergies: No Known Allergies (12/19/17) Home Med List: Albuterol Sulfate (Proair Hfa) 90 MCG HFA.AER.AD 2 INH ALLERGIES (Reported) Fluoxetine HCl 20 MG CAPSULE 2 CAP PO DAILY MENTAL HEALTH (Reported) Lisdexamfetamine Dimesylate (Vyvanse) 50 MG CAPSULE 1 CAP PO QAM ADHD ( Reported) Oxcarbazepine (Unknown Strength) TABLET (Unknown Dose) PO BID UNKNOWN ( Reported) Oxycodone HCl 15 MG TABLET 1 TAB PO 5 TIMES A DAY PAIN (Reported) Oxycodone HCl (Oxycontin) 20 MG TAB.ER.12H 1 TAB PO TID PAIN (Reported) Rizatriptan Benzoate (Maxalt) 10 MG TABLET 1 TAB PO DAILY PRN HEADACHE ( Reported) Tizanidine HCl 4 MG TABLET 1 TAB PO TID PRN MUSCLE SPASMS (Reported) Venlafaxine HCl (Venlafaxine HCl ER) 37.5 MG CAP.ER.24H 2 CAP PO DAILY MENTAL HEALTH (Reported) Current Medications: Current Medications Sig/Cy Start time Last Medication Dose Route Stop Time Status Admin Acetaminophen 1,000 MG Q8P PRN 03/28 0515 AC 03/28 N/A 1 UNIT IV 0556 Cyanocobalamin/ 1 BAG DAILY 03/29 0900 AC Thiamine/Pyridoxine IV Dextrose/Water 1,000 ML Cyanocobalamin/ 1 BAG DAILY 03/28 0900 DC Thiamine/Pyridoxine IV Dextrose/Water 1,000 ML Cyanocobalamin/ 1 BAG DAILY 03/28 0200 DC 03/28 Thiamine/Pyridoxine IV 0255 Dextrose/Water 1,000 ML Docusate Sodium 100 MG BIDPRN PRN 03/29 0951 AC PO Docusate Sodium 100 MG DAILY 03/28 0951 DC PO Enoxaparin Sodium 40 MG DAILY 03/28 0900 AC SC Lorazepam 1 MG ONE ONE 03/28 0515 DC 03/28 IV 03/28 0516 0515 Lorazepam 0 .STK-MED ONE 03/28 0441 DC .ROUTE Lorazepam 0 Q1P PRN 03/28 0045 DC IV Naloxone HCl 2 MG ONCE ONE 03/27 2330 DC 03/27 IV 03/27 2331 2323 Naloxone HCl 0 .STK-MED ONE 03/27 2319 DC .ROUTE Naloxone HCl 0 .STK-MED ONE 03/27 2314 DC .ROUTE Nicotine 21 MG DAILY 03/28 0900 AC 03/28 TOP 0949 Oxycodone/ 1 TAB Q4P PRN 03/28 0515 DC Acetaminophen PO Senna 187 MG AT BEDTIME 03/28 2100 DC PO Senna 187 MG ONCE ONE 03/28 1015 DC PO 03/28 1016 Sodium Chloride 1,000 ML BOLUS ONE 03/28 0100 DC 03/28 IV 03/28 0159 0051 Sodium Chloride 1,000 ML BOLUS ONE 03/28 0100 DC 03/28 IV 03/28 0159 0051 Sodium Chloride 1,000 ML BOLUS ONE 03/28 0100 DC 03/28 IV 03/28 0159 0051 Sodium Chloride 1,000 ML BOLUS ONE 03/27 2330 DC 03/27 IV 03/28 0029 2323 Sodium Chloride 1,000 ML BOLUS ONE 03/27 2330 DC 03/27 IV 03/28 0029 2323 Thiamine HCl 0 .STK-MED ONE 03/28 0239 DC .ROUTE Thiamine HCl 100 MG ONCE ONE 03/28 0200 DC 03/28 Sodium Chloride 50 ML IV 03/28 0259 0243 Venlafaxine HCl 75 MG DAILY 03/28 0900 AC 03/28 PO 0949 Review of Systems Review of Systems Constitutional: Reports: see HPI. 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: endometriosis Surgical History Surgical History: Multiple surgeries to mastoid region for trigeminal neuralgia Psychosocial History Smoking Status: Current Everyday Smoker ETOH Use: 6 Illicit Drug Use: UTD Exam & Diagnostic Data Last 24 Hrs of Vital Signs/I&O Vital Signs Date Time Temp Pulse Resp B/P B/P Pulse O2 O2 Flow FiO2 Mean Ox Delivery Rate 03/28 08 97.1 78 18 110/60 03/28 0800 97 Nasal 1.0L Cannula 03/28 08 97.7 54 18 128/74 97 Nasal 1.0L Cannula 03/28 0600 61 19 99/55 03/28 0451 97.9 58 18 110/54 96 Room Air 03/28 0435 97.9 70 21 110/54 03/28 0357 58 16 96/57 98 Room Air 03/28 0353 99 Room Air Room Air 03/28 0305 59 16 94/56 99 Room Air Room Air 03/28 0245 66 16 98/56 99 Room Air Room Air 03/28 0227 67 16 97/54 99 Room Air Room Air 03/28 0124 58 14 95/52 100 Room Air Room Air 03/28 0105 58 14 86/47 97 Room Air Room Air 03/28 0018 54 14 83/51 99 Room Air 03/27 2333 53 16 84/48 94 Room Air Room Air 03/27 2319 50 20 85/52 100 Nasal 2.0L Cannula 03/27 2316 100 Room Air 03/27 2310 51 20 79/49 100 Nasal 2.0L Cannula 03/27 2248 97.2 53 18 83/48 100 Room Air Intake & Output 03/28 1600 03/28 0800 03/28 0000 Intake Total 4435 1000 Output Total 1200 Balance 3235 1000 Intake, IV 4435 1000 Intake, Oral 0 Number 0 Bowel Movements Output, Urine 1200 Patient 183 lb Weight Physical Exam General Appearance: well developed/nourished, no apparent distress, awake, anxious Head: atraumatic Ears, Nose, Throat: normal pharynx Neck: normal inspection Respiratory: normal breath sounds, lungs clear Cardiovascular: regular rate/rhythm, normal peripheral pulses Gastrointestinal: soft, non-tender Back: normal inspection Extremities: normal inspection, no edema Last 48 Hrs of Labs/Barney: Laboratory Tests 03/28/18 0540: Anion Gap 7, Estimated GFR > 60, Glucose 103 H, Calcium 7.4 L, Phosphorus 3.4, Magnesium 1.8, Total Bilirubin < 0.1 L, AST 48 H, ALT 48, Troponin I < 0.01, Albumin 2.9 L, CBC w Diff NO MAN DIFF REQ, RBC 2.45 L, MCV 100.8 H, MCH 33.1 H, MCHC 32.8 L, RDW 15.4 H, MPV 7.2 L, Gran % 57.4, Lymphocytes % 36.4, Monocytes % 4.6, Eosinophils % 1.0, Basophils % 0.6, Absolute Granulocytes 2.3, Absolute Lymphocytes 1.4, Absolute Monocytes 0.2, Absolute Eosinophils 0, Absolute Basophils 0 03/27/18 2255: Urine Opiates Screen 297, Methadone Screen 42, Barbiturate Screen 635 H, Ur Phencyclidine Scrn < 6.00, Amphetamines Screen 1152 H, U Benzodiazepines Scrn < 85, Urine Cocaine Screen < 50, Urine Cannabis Screen < 5.00, Urine Test NEGATIVE 03/27/18 2255: Anion Gap 7, Estimated GFR > 60, BUN/Creatinine Ratio 20.0, Glucose 130 H, Calcium 8.1 L, Iron 82, TIBC 296, Ferritin 39.5, Total Bilirubin 0.2, AST 16, ALT 29, Alkaline Phosphatase 62, Total Protein 5.8 L, Albumin 3.4 L, Globulin 2.4, Albumin/Globulin Ratio 1.4, Vitamin B12 401, Folate 18.8, CBC w Diff NO MAN DIFF REQ, RBC 2.65 L, MCV 101.2 H, MCH 32.9 H, MCHC 32.5 L, RDW 14.8 H, MPV 7.1 L, Gran % 54.5, Lymphocytes % 35.8, Monocytes % 5.9, Eosinophils % 3.5, Basophils % 0.3, Absolute Granulocytes 4.4, Absolute Lymphocytes 2.9, Absolute Monocytes 0.5, Absolute Eosinophils 0.3, Absolute Basophils 0, Salicylates < 1.0 , Acetaminophen < 10.0 L, Serum Alcohol 154.0, Urine Color YEL, Urine Clarity CLEAR, Urine pH 6.5, Ur Specific [place] 1.015, Urine Protein NEG, Urine Ketones NEG, Urine Nitrite NEG, Urine Bilirubin NEG, Urine Urobilinogen 0.2, Ur Leukocyte Esterase NEG, Ur Microscopic EXAM NOT REQUIRED, Urine Hemoglobin NEG, Urine Glucose NEG Assessment/Plan CRCU Impression/Plan: Teresa Gar is a 47F with PMH Trigeminal Neuralgia, Chronic Smoker, Endometriosis BIBA after taking 6 tinazadine pills and 3 beers, aggressive at scene and went unresponsive, given Narcan 0.8 MG followed by 1.2mg, was hypotensive and bradycardic on admission, given 1L NS bolus followed by 3L NS, and 1mg ativan in the morning given agitation. Her CT abdomen/pelvis scan was negative, TVUS showed no abnormalaties, and her mental status has been improving. Respiratory: stable -Good saturations on room air -Lungs clear on exam Infectious Disease: stable -Afebrile without leukocytosis -Todays CBC shows WBC at 4.0. Will f/u with CBC tomorrow AM Cardiovascular/Circulatory: -Hypotensive on admission, s/p 5L NS, no signs of overt fluid overload. Will monitor -Normotensive with NSR on monitor at this time Hematologic: Elevated MCV 101.2, Macrocytic Anemia -H/H 8.7/26.8 , B12 and Folate WNL -Previous H/H was 11.7/34.5 in December 2017 -Will repeat CBC tomorrow AM Metabolic:Stable -Utox shows elevated barbiturate level, positive amphetamine -Mild transaminitis likely 2/2 muscle relaxant usage and alcohol -Will trend with BEP tomorrow Alimentary: Stable -Tolerating Regular Diet -Bowel regimen prescribed, had large stool caliber on CT scan Neurologic: -Denies SI/HI -No focal neuro deficits -No tremor or asterixis noted -On CIWA scale -Psychiatry input appreciated Nephro: -BUN/Cr stable DVT PPX IV access - peripheral Full code Consult Acknowledgment - Thank you for your consult request.
[2018-03-28 07:53] LABS: ABSOLUTE BASOPHIL COUNT 0 /CUMM (0.0-0.2); ABSOLUTE EOSINOPHIL COUNT 0 /CUMM (0.0-0.7); ABSOLUTE GRANULOCYTE CT 2.3 /CUMM (1.4-6.5); ABSOLUTE LYMPH COUNT 1.4 /CUMM (1.2-3.4); ABSOLUTE MONOCYTE COUNT 0.2 /CUMM (0.10-0.60); BASOPHIL % 0.6 % (0.0-2.0); GRANULOCYTE % 57.4 % (42.2-75.2); HEMATOCRIT 24.7 % (37-47); MEAN CORPUSCULAR HGB 33.1 PG (27.0-31.0); MEAN CORPUSCULAR HGB CONC 32.8 G/DL (33.0-37.0); MEAN CORPUSCULAR VOLUME 100.8 FL (81.0-99.0); MEAN PLATELET VOLUME 7.2 FL (7.4-10.4); PLATELET COUNT 203 /CUMM (130-400); RBC DISTRIBUTION WIDTH 15.4 % (11.5-14.5); RED BLOOD CELL CT 2.45 /CUMM (4.20-5.40)
--- NOTE | 2018-03-28 09:38 | CT SCAN REPORT ---
EXAMINATION: CT ABDOMEN AND PELVIS WITH CONTRAST CLINICAL INFORMATION: Abdominal pain. Question obstruction. COMPARISON: CT of the abdomen and pelvis 04/14/2015. TECHNIQUE: Multidetector volumetric imaging was performed from the superior aspect of the liver through the pubic symphysis following administration of oral contrast. Sagittal and coronal reformatted images were obtained on the technologist's workstation. DLP: 340 mGy-cm FINDINGS: LOWER CHEST: There is hypoattenuation of the cardiac blood pool suggestive of anemia. Atelectatic changes are noted at the bilateral lung bases. LIVER, GALLBLADDER, AND BILIARY TREE: The liver is normal in size, shape, and attenuation. No focal hepatic lesion or biliary ductal dilatation is present. The gallbladder is unremarkable with no evidence of radiopaque gallstones, gallbladder wall thickening, or obvious pericholecystic inflammatory changes. PANCREAS: Unremarkable. SPLEEN: Unremarkable. ADRENAL GLANDS: Unremarkable. KIDNEYS AND URETERS: The kidneys are normal in size, shape, and attenuation. No hydronephrosis, hydroureter, or calculi seen. No perinephric stranding. BLADDER: Unremarkable. GASTROINTESTINAL TRACT: A large burden of colonic stool is seen. The stomach appears normal. The small bowel is normal in caliber and is contrast filled. The appendix is not definitively identified however no inflammatory changes are seen in the right lower quadrant. The terminal ileum and base of cecum are normal. ABDOMINAL WALL: No significant hernia is appreciated. LYMPH NODES: No enlarged lymph nodes are seen. VASCULAR: Normal caliber aorta. PELVIC VISCERA: An intrauterine device is in place. No gross pelvic mass is seen. OSSEOUS STRUCTURES: Mild dextroscoliotic curvature in the spine. Mild spondylotic changes are noted at L2-L3. No fracture or destructive lesion is seen. IMPRESSION: No acute abnormality identified in the abdomen or pelvis. A large burden of colonic stool is present but no evidence of obstruction is seen. The appendix was not definitively identified.
--- NOTE | 2018-03-28 10:04 | ULTRASOUND REPORT ---
EXAMINATION: ULTRASOUND OF THE PELVIS CLINICAL INFORMATION: Endometriosis. GI pain. COMPARISON: None. TECHNIQUE: Transabdominal and transvaginal pelvic ultrasound. Doppler evaluation with spectral analysis was performed. FINDINGS: The uterus is normal in size and appearance, measuring 5.1 x 3.0 x 4.1 cm longitudinally, anteroposteriorly and transversely. The endometrial stripe thickness is normal, measuring 0.2 cm in thickness. No focal myometrial mass is seen. There is an intrauterine device in place. The cervical length is normal measuring 2.2 cm. The ovaries are visualized and appear normal, with the right ovary measuring 2.8 x 1.4 x 1.7 for a total volume of 3.3 mL cm and the left ovary measuring 1.5 x 2.0 x 1.5 cm for a total volume of 2.3 mL. A left-sided adnexal follicle measures 0.8 x 0.6 x 0.8 cm. There are normal arterial and venous spectral waveforms bilaterally. A small amount of free fluid is seen. IMPRESSION: No sonographic abnormality in the pelvis. An intrauterine device is in place.
--- NOTE | 2018-03-28 12:22 | Cons- Psychiatry ---
Psychiatric Consult Date of Consult: 03/28/18 Reason for Consult: Patient admitted following overdose. History of Present Illness: This 47-year-old female with following an overdose of tizanidine. Urine was positive for opiates and amphetamines both of which the patient is prescribed. Blood alcohol was 154. The patient was seen with her fiangelina Otero at her request. She reported that she was in physical distress due to opiate withdrawal. Patient reported that she has been in pain for considerable length of time. She has been encouraged to take more muscle relaxants but does not like taking extra medications. She reports that yesterday her ex- took the children and she decided to have a couple of beers in the hopes that it would help her pain. She then took 3 tizanidine and later took a few more. Per her anuj's report report she then texted him saying "I think I took too much medication, I feel weird". She adamantly denies that this was a suicide attempt. Her fianc corroborates that her mood has been good. She has been distressed by her pain which is chronic. She adamantly denies overusing her medication and again her fianc corroborates that she tries to take as little as possible. The patient is on an antidepressant and an amphetamine. These are prescribed by her pain management team in an attempt to "keep the stress under control". There are no psychotic symptoms. She denies any recent change in her mood. Past psychiatric history: The patient had an episode of depression with suicidal ideation in her 20s secondary to her chronic pain. She has no history of psychiatric hospitalization, no history of deliberate self-harm and no history of suicide attempts. Substance abuse history: The patient denies this. Discussed the risk of becoming opiate dependent even when opiates are prescribed for the addition of pain. The patient adamantly denies overuse. 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 The patient says this was to get a supply so that she could visit her family in [place]. POWER BALLAST MACHINE OPERATOR also shows that the patient has been getting regular prescriptions for opiates. There is no evidence of extra prescriptions and most prescriptions are from the same providers. The patient denies regular alcohol use. Social history: The couple is due to next week. The patient reports a good relationship with her pain management team. She has several supports including both parents, her adult son and several friends. She is unemployed and receives Social Security disability. According to both the patient and her fianc she is extremely jew. 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 Physical Limitations (Interventions): Chronic pain Psychiatric Treatment History Diagnosis: N/A Risk Factors: high anxiety/distress, Chronic pain Substance Abuse Treatment Comments: See HPI Assessment/Plan Mental Status Orientation: Person, Place, Situation Mental Status Exam: The patient was seen lying in her hospital bed. She jerked intermittently stating it was due to opiate withdrawal. Blood pressure was 110/60, pulse 78. There was no evidence of leukemia, rhinorrhea, gooseflesh or diarrhea. Pupils were mildly dilated in a dim room. Eye contact was good. Speech was normal in rate, rhythm, volume and tone. Patient's mood was anxious and agitated which she attributed to opiate withdrawal. She is not suicidal or homicidal. Thought process was normal in tempo, stream and form. There were no delusions or obsessions. Content was focused on opiate withdrawal. Attention and concentration were good. There is no perceptual abnormality. Impulse control was fair, the patient had threatened to leave hospital if she did not receive her opiates. Intelligence level is average, use of language appropriate, fund of knowledge average. Recent and remote memory are intact. Insight is fair, judgment unimpaired. Diffential Diagnosis: -Unintentional overdose without suicidal intent -Rule out opiate use disorder -Rule out alcohol use disorder Impression: 47-year-old female admitted following unintentional overdose of medication. The patient has a history of chronic pain and is prescribed opiates for this by her pain management team. She also takes a muscle relaxant, antidepressant and stimulant per pain management. She complains of symptoms of opiate withdrawal. She is not depressed or suicidal and there are no psychotic symptoms. There is a possibility of opiate use disorder but the patient denies this. Provisional Treatment Plan: - The patient is not suicidal. She is not receptive to discussion on possible opiate abuse. No further psychiatric intervention required at this time. -There are no objective symptoms of opiate withdrawal at this time. However the patient reports experiencing body aches and "jerks". She did receive Narcan yesterday. Suggest resumption of normal medication regime when medically appropriate. Psychiatry will sign off. Thank you for consulting us on this patient.
--- NOTE | 2018-03-28 18:06 | Event Note ---
Event Note Event Note: Patient started screaming loudly asking for Percocet for her headache or discharging home. It was earlier evaluated by psychiatry who recommended starting her home dose medication when it is medically appropriate. Plan for today is reduced narcotics. The attending Dr. Palacios was called and updated about the situation, he agreed on not giving her any opioids than what was already prescribed otherwise she can leave AMA after evaluation. Percocet 2 tabs twice daily was prescribed, first does administrated at 12 PM, next dose should be at 9 PM. Patient is complaining of headache because of trigeminal neuralgia, she is concerned that she may develop opioids withdrawal. Patient was evaluated by me and the resident Dr. Comer, no signs of withdrawal as there is no palpitation, sweating, shortness of breath, tremors. We discussed with the patient that she can get pain medication except opioids, we will prescribe Toradol and reevaluate, patient agreed to the plan.
[2018-03-29 06:21] VITALS: BP 128/70
--- NOTE | 2018-03-29 07:16 | PN- Housestaff ---
See Addendum Subjective Follow-up For: Drug Overdose Subjective: Pt seen and examiend at bedside. Day 1 on general medicine floor. Patient agitated overnight however compliant this morning. Eating well and claims she is constipated but ready to go home. Fiance at bedside and patient for discharge today. Afebrile with normal vital signs and no signs of withdrawal. Review of Systems Constitutional: Denies: see HPI. Objective Last 24 Hrs of Vital Signs/I&O Vital Signs Date Time Temp Pulse Resp B/P B/P Pulse O2 O2 Flow FiO2 Mean Ox Delivery Rate 03/29 621 98.1 57 20 128/70 96 Room Air 03/28 2310 98.4 62 19 138/75 97 Room Air 03/28 1928 99.0 76 20 118/66 96 Room Air 03/28 1703 99.4 03/28 1600 99.4 74 18 130/70 03/28 1600 99.4 74 18 130/70 96 Room Air 03/28 1200 66 18 134/84 Physical Exam General Appearance: Alert, Oriented X3, Cooperative Skin: No Breakdown HEENT: EOMI, Mucous Membr. moist/pink Cardiovascular: Normal S1, Normal S2 Lungs: Clear to Auscultation, Normal Air Movement Abdomen: Normal Bowel Sounds, Soft, No Tenderness Neurological: Normal Gait, Normal Speech Extremities: No Edema Vascular: Normal Pulses, Pulses Symmetrical Current Medications: Current Medications Sig/Cy Start time Last Medication Dose Route Stop Time Status Admin Acetaminophen 0 .STK-MED ONE 03/28 1702 DC IV Acetaminophen 1,000 MG Q8P PRN 03/28 0515 03/28 N/A 1 UNIT IV 1703 Al Hydroxide/Mg 0 .STK-MED ONE 03/28 1617 DC Hydroxide PO Al Hydroxide/Mg 30 ML ONCE ONE 03/28 1615 DC 03/28 Hydroxide PO 03/28 1616 1615 Bisacodyl 10 MG ONCE ONE 03/28 1330 DC 03/28 MO 03/28 1331 1509 Cyanocobalamin/ 1 BAG DAILY 03/29 900 DC Thiamine/Pyridoxine IV Dextrose/Water 1,000 ML Docusate Sodium 100 MG BIDPRN PRN 03/29 0951 AC 03/29 PO 0934 Enoxaparin Sodium 40 MG DAILY 03/28 09 AC SC Ibuprofen 600 MG ONCE ONE 03/28 1730 DC PO 03/28 1731 Ketorolac 30 MG ONCE ONE 03/28 1745 DC 03/28 Tromethamine IV 03/28 1746 1749 Ketorolac 30 MG 1130 03/28 1130 DC 03/28 Tromethamine IV 03/28 1131 1123 Ketorolac 0 .STK-MED ONE 03/28 1121 DC Tromethamine .ROUTE Nicotine 21 MG DAILY 03/28 0900 DC 03/28 TOP 0949 Oxycodone/ 2 TAB BID 03/28 2100 AC 03/29 Acetaminophen PO 0638 Oxycodone/ 2 TAB Q6P PRN 03/28 1200 DC 03/28 Acetaminophen PO 1157 Oxycodone/ 0 .STK-MED ONE 03/28 1159 DC Acetaminophen PO Venlafaxine HCl 75 MG DAILY 03/28 0900 AC 03/29 PO 0934 Last 24 Hrs of Lab/Barney Results Last 24 Hrs of Labs/Mics: Laboratory Tests 03/28/18 1445: Troponin I < 0.01 03/28/18 1250: Ref Lab Test Result Pending Assessment/Plan Assessment: Teresa Gar is a 47F with PMH Trigeminal Neuralgia, Chronic Smoker, Endometriosis BIBA after taking 6 tinazadine pills and 3 beers, aggressive at scene and went unresponsive, given Narcan 0.8 MG followed by 1.2mg, was hypotensive and bradycardic on admission given fluids. Her CT abdomen/pelvis scan was negative TVUS showed no abnormalaties Utox shows elevated barbiturate level, positive amphetamine 03/29: No signs of withdrawal. Patients H/H stable with no complaints of vaginal bleeding. Patient is constipated but claims she will go home and try her bowel regimen at home. Denies any complaints. Cleared for discharge from medical/ psychiatric perspective. Patient has clear capacity and is supported by her at bedside today. PROBLEM LIST: 1. Drug Overdose - Unintentional without suicidal intent 2. Endometriosis 3. Trigeminal Neuralgia PLAN: * Patient on first day of general medicine and denied all medications and therapies today. She is ready to go home and stable for discharge. Stable from a medical and psychiatric standpoint. Drug overdose deemed to be unintentional. * Patient advised to follow up close with her PCP * Advised to follow up with pain management clinic for appropriate adjustment of medications Code Status: Full Code DVT PPx: ALPS - refusing Diet: Regular Problem List: 1. Polysubstance overdose Pain Ratin Pain Location: denies pain today Pain Goal: Remain pain free Pain Plan: as per pain pathway Tomorrow's Labs & Rationales: Discharge
--- NOTE | 2018-03-29 11:07 | Patient Discharge Instructions ---
Discharge Instructions General Discharge Information You were seen/treated for: Unintentional Drug Overdose Special Instructions: Please follow up with your PCP within 1-2 weeks of discharge. Please follow up with your OBGYN as necessary. Return to ED with worsening symptoms. Acute Coronary Syndrome Inclusion Criteria At DC or during hospital stay patient has or had the following: ACS DIAGNOSIS No Discharge Core Measures Meds if any: Prescribed or Continued at Discharge Meds if any: NOT Prescribed or Continued at Discharge Congestive Heart Failure Inclusion Criteria At DC or during hospital stay patient has or had the following: CHF DIAGNOSIS No Discharge Core Measures Meds if any: Prescribed or Continued at Discharge Meds if any: NOT Prescribed or Continued at Discharge Cerebrovascular accident Inclusion Criteria At DC or during hospital stay patient has or had the following: CVA/TIA Diagnosis No Discharge Core Measures Meds if any: Prescribed or Continued at Discharge Meds if any: NOT Prescribed or Continued at Discharge Venous thromboembolism Inclusion Criteria VTE Diagnosis No VTE Type NONE VTE Confirmed by (Test) NONE Discharge Core Measures - Per Current guidelines, there needs to be overlap - treatment for the first 5 days of Warfarin therapy. - If discharged on Warfarin prior to 5 days of - overlap therapy, the patient will need to be - assessed for post discharge needs including - *Post discharge parental anticoagulation - *Warfarin and/or parental anticoagulation education - *Follow up date to check INR post discharge At least 5 days overlap therapy as Inpatient No Meds if any: Prescribed or Continued at Discharge Note: Overlap Therapy is Warfarin and Anticoagulant Meds if any: NOT Prescribed or Continued at Discharge
--- NOTE | 2018-03-29 14:32 | Discharge Summary ---
Visit Information Visit Dates Admission Date: 03/28/18 Discharge Date: 03/29/18 Hospital Course Course Attending Physician: Philip ORONA,Anand Byers Primary Care Physician: Jose ORONA,[facility] Course: Patient is a 47-year-old female with past medical history of trizonal neuralgia not following any neurologist on multiple medication, endometriosis, chronic smoker, BIBA from home because of overdosing of muscle relaxer. EMS were called by anuj. According to him patient was continuous in his contact since morning. She was talking over the phone and was seen that she has really bad pain/trigeminal neuralgia. She told in the evening that she is going to take muscle relaxant. After what she was not in contact and not responding so she called 911. According to the documentation patient was combative when EMS arrived at home, she was screaming that she did not take anything and had only 1 drink. Per EMS there was one empty beer bottle. Patient became unresponsive she was given 500 cc of normal saline followed by 2 mg of Narcan and 0.5 mg of troponin with very slight improvement. She had very small response to sternal rub, was pale, clammy, snoring. Patient's sheets were blood tinged at the scene. Vital signs at the time of admission -blood pressure 83/40 she was given IV normal saline. She needed an extra dose of 0.8 mg of Narcan. She did not have any good response. Another, 1.2 mg of Narcan was given followed by complete alertness. She was continued on IV fluid. Vital signs -temperature 97.2, pulse 53, respiratory rate 18, blood pressure 83/ 48, SPO2 100% on room air. Blood workup showed-hemoglobin 8.7, MCV 101.2, platelet count 267, sodium 135, potassium 3.9, chloride 100, carbon DEXA 28, anion gap 7, BUN 12, creatinine 0.6 , glucose 130, calcium 8.1, total bilirubin 0.2, AST 16, ALT 29, alkaline phosphatase 62, albumin 3.4, U tox-positive for barbiturates, amphetamine, serum alcohol-154, acetaminophen level less than 10, urine analysis-normal, urine test negative. ON my examination, patient was somnolent, eventually alert after sternal rub. She states that last night she had significant pain, and decided to take 3 of her tinazidine pills, also drank 3 beers while cooking dinner. States that she continued to have abdominal pain and decided to take 3 more tinazidine pills. States that she gets these pills from her pain management physician for trigeminal neuralgia. States that she has not used these in the past although eventually admits that she has taken these before but does not remember her normal reaction or dose that she takes. Has never mixed her muscle relaxants with alcohol before, and denies drinking (although stated she drank 3 beers last night while cooking during the interview) daily. Unsure of when she last took Fioricet when asked if she had taken any barbiturates given positive UDS. States that she is happy with her life and is getting soon, denies SI/HI. States that she continues to have mild crampy abdominal pain, is diagnosed with endometriosis but says she has not been sexually active in quite some time and is unsure why she has pains now. She was admitted to ICU for overdose, initially hypotensive on admission given 1L NS bolus followed by 3L NS, and 1mg ativan in the morning given agitation. She was placed on CIWA scale, underwent abdominal CT and TVUS which showed large stool burden without obstruction and no endometriosis. She was seen by psychiatry, who recommended starting her back on her prescribed opiate medication and that she was not acutely suicidal. She started screaming loudly later in the day stating she wants more opiates but was given toradol and agreed to plan. She was medically stable and downgraded to general medicine. Her labs returned normal, without hypotension or any abnormalaties, and she was discharged with strict return precautions, verbalized understanding of treatment plan, and discharged w/o incident to follow up with PCP. Allergies: Coded Allergies: No Known Allergies (12/19/17) Disposition Summary Disposition Principal Diagnosis: Drug overdose on muscle relaxants (Tizanidine) Endometriosis Trigeminal Neuralgia Constipation Additional Diagnosis: as above Discharge Disposition: home or self care Discharge Instructions General Discharge Information Code Status: Full Code Patient's Diet: as tolerated Patient's Activity: as tolerated Follow-Up Instructions/Appts: - Please do not mix muscle relaxants with alcohol. Please only take your prescribed doses of medications. - Please follow up with your primary care physician within 1-2 weeks of discharge. Inform your primary care physician of this admission to [facility]. - Continue your current medications per discharge instructions. - Please watch for these problems: Fever, Chills, Nausea, Vomiting, Shortness of Breath, Productive Cough, Chest Pain/Discomfort, Abdominal Pain, Active Bleeding or Bloody urine/stool. Medications at Discharge Discharge Medications: Continue taking these medications: Fluoxetine HCl (Fluoxetine HCl) 20 MG CAPSULE 2 Capsule ORAL DAILY Comments: NOT GIVEN Venlafaxine HCl (Venlafaxine HCl ER) 37.5 MG CAP.ER.24H 2 Capsule ORAL DAILY Comments: Last Taken: 03/29/18 Time: 0934 Rizatriptan Benzoate (Maxalt) 10 MG TABLET 1 Tablet ORAL DAILY as needed for HEADACHE Comments: NOT GIVEN Lisdexamfetamine Dimesylate (Vyvanse) 50 MG CAPSULE 1 Capsule ORAL Every Morning Comments: NOT GIVEN Oxycodone HCl (Oxycodone HCl) 15 MG TABLET 1 Tablet ORAL 5 TIMES A DAY Tizanidine HCl (Tizanidine HCl) 4 MG TABLET 1 Tablet ORAL THREE TIMES DAILY as needed for MUSCLE SPASMS Comments: NOT GIVEN Oxcarbazepine (Oxcarbazepine) (Unknown Strength) TABLET Unknown Dose ORAL TWICE DAILY Comments: NOT GIVEN Oxycodone HCl (Oxycontin) 20 MG TAB.ER.12H 1 Tablet ORAL THREE TIMES DAILY Comments: Last Taken: 03/29/18 Time: 0638 Albuterol Sulfate (Proair Hfa) 90 MCG HFA.AER.AD 2 Inhale through mouth Comments: NOT GIVEN Copies To: Jose ORONA,Loly Attending MD Review Statement Documenting Attending: Dheeraj Owens MD Other Findings: The patient was seen by me on the day of discharge and agree with the above summary and plan of care. As per psychiatry the overdose was not intentional.
== END 2018-03-29 11:15 ==
LOC: ERH 22:13 → ERHI 03-28 00:06 → 2NB 03-28 00:06 → CRI 03-28 00:06 → 2NB 03-28 00:06 → ENRESERV 03-28 01:13 → EDBEDREQ 03-28 02:05 → CRI 03-28 04:28 → ENTRNSPT 03-28 18:45 → EDTRNSPTSTS 03-28 19:03 → EDTRNSPT 03-28 19:03 → 2NB 03-28 19:07 → CMPTRNSPT 03-28 19:12 → 2NB 03-29 11:15 → ENPENDDIS 03-29 11:16
PROVIDERS: Emergency Medicine; Internal Medicine Adolescent Medicine
DX: T48.201A Poisoning by unspecified drugs acting on muscles, accidental (unintentional), initial encounter (principal); G50.0 Trigeminal neuralgia; F17.200 Nicotine dependence, unspecified, uncomplicated; F41.9 Anxiety disorder, unspecified; T40.601A Poisoning by unspecified narcotics, accidental (unintentional), initial encounter; T43.621A Poisoning by amphetamines, accidental (unintentional), initial encounter; T51.91XA Toxic effect of unspecified alcohol, accidental (unintentional), initial encounter; I95.9 Hypotension, unspecified; R00.1 Bradycardia, unspecified; D53.9 Nutritional anemia, unspecified; N80.9 Endometriosis, unspecified; K59.00 Constipation, unspecified; Z79.899 Other long term (current) drug therapy
CPT/HCPCS: 1328; 1748; 36415; 74176; 80307; 81003; 81025; 82436; 83010; 93005; 93010; 96360; 96361; 96374; 96375; 96376; G0480; J0131; J1650; J1885; J2310; J7060